=== PATIENT | male | born 1960 | race African-American/Black ===

== ENCOUNTER 2017-10-28 12:47 | Inpatient (IN) | payer OTHER ==
[2017-10-28 14:49] VITALS: BMI 27.4
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
[2017-10-28] MEDS ORDERED: MAGNESIUM CITRATE 300 ML BOTTLE PO PRN (17:14)
[2017-10-28] MEDS ORDERED: MENTHOL/PHENOL 1 EACH UD MM PRN (17:14)
[2017-10-28] MEDS ORDERED: guaiFENesin/D-METHORPHAN HB 10 ML UNIT-DOSE CUPS PO PRN (17:14)
[2017-10-28] MEDS ORDERED: LOPERAMIDE HCL 2 MG CAPSULE PO PRN (17:14)
[2017-10-28] MEDS ORDERED: MAGNESIUM HYDROX 2400MG/30ML ORAL SUSPENSION 30 ML CUP PO PRN (17:14)
[2017-10-28] MEDS ORDERED: IBUPROFEN 400 MG TABLET (FP) PO PRN (17:14)
[2017-10-28] MEDS ORDERED: hydrOXYzine PAMOATE 50 MG CAPSULE (FP) PO PRN (17:14)
[2017-10-28] MEDS ORDERED: NICOTINE POLACRILEX 2 MG GUM BC PRN (17:14)
[2017-10-28] MEDS ORDERED: ACETAMINOPHEN 325 MG TABLET (FP) PO PRN (17:14)
[2017-10-28] MEDS ORDERED: P-EPHED 60MG/TRIPROLIDI 2.5MG TABLET PO PRN (17:14)
[2017-10-28] MEDS: NICOTINE 14 MG/24 HOURS TOPICAL PATCH TD SCH (18:40)
[2017-10-28] MEDS ORDERED: cloNIDine HCL 0.1 MG TABLET PO ONE (18:45)
[2017-10-28] MEDS: ALBUTEROL SO4 18 GM HFA INHALER IH PRN (19:11)
[2017-10-28] MEDS: MAG HYDROX/AL HYDROX/SIMETH 30 ML UNIT-DOSE CUP PO PRN (20:02)
[2017-10-28] MEDS: THIAMINE HCL 100 MG TABLET (FP) PO SCH (21:16)
[2017-10-28] MEDS: BACITRACIN 0.9 GM PACKET TP SCH (21:16)
[2017-10-28] MEDS: BUDESONIDE/FORMETEROL FUMARATE 80/4.5 mcg INHALER IH SCH (21:16)
[2017-10-29 06:21] LABS: URINE APPEARANCE CLEAR; URINE BILIRUBIN NEGATIVE (<2.0 mg/dL); URINE COLOR YELLOW; URINE GLUCOSE (UA) NEGATIVE (NEGATIVE); URINE KETONE NEGATIVE (NEGATIVE); URINE LEUK ESTERASE NEGATIVE (NEGATIVE); URINE NITRITE NEGATIVE (NEGATIVE); URINE PROTEIN NEGATIVE (NEGATIVE); URINE UROBILINOGEN NEGATIVE mg/dL (0.2-1.0)
[2017-10-29] MEDS ORDERED: PT OWN MED DRAWER 7, Y5N ONE (06:39)
[2017-10-29] MEDS: ALBUTEROL SO4 18 GM HFA INHALER IH PRN ×2 (06:40→19:13)
[2017-10-29] MEDS: NAPROXEN 500 MG TABLET (FP) PO PRN (06:40)
[2017-10-29] MEDS: BACITRACIN 0.9 GM PACKET TP SCH ×2 (09:44→21:17)
[2017-10-29] MEDS: BUDESONIDE/FORMETEROL FUMARATE 80/4.5 mcg INHALER IH SCH ×2 (09:44→21:17)
[2017-10-29] MEDS: PRENATAL VITAMINS W/ FOLIC ACID TABLET (FP) PO SCH (09:45)
[2017-10-29] MEDS: NICOTINE 14 MG/24 HOURS TOPICAL PATCH TD SCH (09:45)
[2017-10-29 10:08] LABS: HEMATOCRIT 38.1 % (35.4-49); HEMOGLOBIN 12.8 GM/dL (11.7-16.9); MCH 31.6 pg (25.7-33.7); MCHC 33.6 g/dl (32.0-35.9); MEAN PLT VOLUME 8.3 fl (7.5-11.1); PLATELET COUNT 235 K/MM3 (134-434); RBC 4.05 M/mm3 (4.00-5.60); RDW 12.8 % (11.9-15.9); WHITE BLOOD COUNT 7.1 K/mm3 (4.0-10.0)
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
--- NOTE | 2017-10-29 11:31 | EKG ---
Test Reason : Blood Pressure : / mmHG Vent. Rate : 092 BPM Atrial Rate : 092 BPM P-R Int : 132 ms QRS Dur : 082 ms QT Int : 342 ms P-R-T Axes : 073 011 070 degrees QTc Int : 422 ms NORMAL SINUS RHYTHM NORMAL ECG NO PREVIOUS ECGS AVAILABLE Confirmed by ANNA WILSON, PHUONG ([id number]) on 10/29/2017 11:30:46 AM Referred By: Confirmed By:PHUONG CASTILLO MD
[2017-10-29] MEDS ORDERED: PNEUMOC 13-VAL CONJ-DIP CRM/PF 0.5 ML DISP.SYRIN IM ONE (12:00)
[2017-10-29] MEDS ORDERED: PNEUMOCOCCAL 23 VACCINE 0.5 ML VIAL IM ONE (12:00)
[2017-10-29] MEDS ORDERED: FLU VACCINE QUAD 60 MCG/0.5 ML (MDV 17-18) IM ONE (12:00)
[2017-10-29] MEDS: MAG HYDROX/AL HYDROX/SIMETH 30 ML UNIT-DOSE CUP PO PRN ×2 (15:28→21:18)
[2017-10-29 15:33] LABS: ALBUMIN 3.3 g/dl (3.4-5.0); ANION GAP 7 (8-16); BLOOD UREA NITROGEN 15 mg/dL (7-18); CHLORIDE 104 mmol/L (98-107); CO2 30 mmol/L (21-32); GLUCOSE,RANDOM 135 mg/dL (74-106); POTASSIUM 4.7 mmol/L (3.5-5.1); SODIUM 141 mmol/L (136-145)
[2017-10-29 15:36] LABS: ALK PHOS 55 U/L (45-117); BILIRUBIN,TOTAL 0.3 mg/dL (0.2-1.0); SGOT/AST 22 U/L (15-37); SGPT/ALT 23 U/L (12-78); TOT PROT 6.5 g/dl (6.4-8.2)
[2017-10-29] MEDS: THIAMINE HCL 100 MG TABLET (FP) PO SCH (21:17)
[2017-10-30] MEDS: ALBUTEROL SO4 18 GM HFA INHALER IH PRN ×2 (06:28→17:50)
[2017-10-30] MEDS: BACITRACIN 0.9 GM PACKET TP SCH ×2 (09:51→21:33)
[2017-10-30] MEDS: PRENATAL VITAMINS W/ FOLIC ACID TABLET (FP) PO SCH (09:51)
[2017-10-30] MEDS: BUDESONIDE/FORMETEROL FUMARATE 80/4.5 mcg INHALER IH SCH ×2 (09:51→21:33)
[2017-10-30] MEDS: NICOTINE 14 MG/24 HOURS TOPICAL PATCH TD SCH (09:51)
[2017-10-30] MEDS: PANTOPRAZOLE 40 MG TABLET (FP) PO SCH (17:48)
[2017-10-30] MEDS: THIAMINE HCL 100 MG TABLET (FP) PO SCH (21:33)
[2017-10-30] MEDS: MELATONIN 5 MG TABLETS PO PRN (21:34)
[2017-10-31] MEDS: ALBUTEROL SO4 18 GM HFA INHALER IH PRN ×2 (06:02→17:14)
[2017-10-31] MEDS: BUDESONIDE/FORMETEROL FUMARATE 80/4.5 mcg INHALER IH SCH ×2 (09:51→21:28)
[2017-10-31] MEDS: BACITRACIN 0.9 GM PACKET TP SCH ×2 (09:51→21:28)
[2017-10-31] MEDS: NAPROXEN 500 MG TABLET (FP) PO PRN (09:52)
[2017-10-31] MEDS: NICOTINE 14 MG/24 HOURS TOPICAL PATCH TD SCH (09:52)
[2017-10-31] MEDS: PANTOPRAZOLE 40 MG TABLET (FP) PO SCH (09:52)
[2017-10-31] MEDS: PRENATAL VITAMINS W/ FOLIC ACID TABLET (FP) PO SCH (09:52)
[2017-10-31] MEDS: THIAMINE HCL 100 MG TABLET (FP) PO SCH (21:27)
[2017-11-01] MEDS: ALBUTEROL SO4 18 GM HFA INHALER IH PRN ×2 (06:05→15:10)
[2017-11-01] MEDS: NICOTINE 14 MG/24 HOURS TOPICAL PATCH TD SCH (09:57)
[2017-11-01] MEDS: BACITRACIN 0.9 GM PACKET TP SCH ×2 (09:57→21:36)
[2017-11-01] MEDS: PRENATAL VITAMINS W/ FOLIC ACID TABLET (FP) PO SCH (09:57)
[2017-11-01] MEDS: PANTOPRAZOLE 40 MG TABLET (FP) PO SCH (09:57)
[2017-11-01] MEDS: BUDESONIDE/FORMETEROL FUMARATE 80/4.5 mcg INHALER IH SCH ×2 (09:58→21:36)
[2017-11-01] MEDS: NAPROXEN 500 MG TABLET (FP) PO PRN ×2 (09:59→21:36)
[2017-11-01] MEDS: THIAMINE HCL 100 MG TABLET (FP) PO SCH (21:36)
[2017-11-01] MEDS: MELATONIN 5 MG TABLETS PO PRN (21:36)
[2017-11-02] MEDS: ALBUTEROL SO4 18 GM HFA INHALER IH PRN ×2 (06:29→17:02)
[2017-11-02] MEDS: PRENATAL VITAMINS W/ FOLIC ACID TABLET (FP) PO SCH (09:48)
[2017-11-02] MEDS: NICOTINE 14 MG/24 HOURS TOPICAL PATCH TD SCH (09:48)
[2017-11-02] MEDS: BACITRACIN 0.9 GM PACKET TP SCH ×2 (09:48→21:14)
[2017-11-02] MEDS: BUDESONIDE/FORMETEROL FUMARATE 80/4.5 mcg INHALER IH SCH ×2 (09:49→21:14)
[2017-11-02] MEDS: PANTOPRAZOLE 40 MG TABLET (FP) PO SCH (09:49)
[2017-11-02] MEDS: NAPROXEN 500 MG TABLET (FP) PO PRN (21:14)
[2017-11-02] MEDS: THIAMINE HCL 100 MG TABLET (FP) PO SCH (21:14)
[2017-11-02] MEDS: MELATONIN 5 MG TABLETS PO PRN (21:14)
[2017-11-03] MEDS: ALBUTEROL SO4 18 GM HFA INHALER IH PRN ×2 (06:13→17:01)
[2017-11-03] MEDS: NICOTINE 14 MG/24 HOURS TOPICAL PATCH TD SCH (09:55)
[2017-11-03] MEDS: PANTOPRAZOLE 40 MG TABLET (FP) PO SCH (09:55)
[2017-11-03] MEDS: BACITRACIN 0.9 GM PACKET TP SCH ×2 (09:55→21:23)
[2017-11-03] MEDS: PRENATAL VITAMINS W/ FOLIC ACID TABLET (FP) PO SCH (09:55)
[2017-11-03] MEDS: BUDESONIDE/FORMETEROL FUMARATE 80/4.5 mcg INHALER IH SCH ×2 (09:55→21:21)
[2017-11-03] MEDS: MELATONIN 5 MG TABLETS PO PRN (21:21)
[2017-11-03] MEDS: THIAMINE HCL 100 MG TABLET (FP) PO SCH (21:21)
[2017-11-03] MEDS: NAPROXEN 500 MG TABLET (FP) PO PRN (21:22)
[2017-11-04] MEDS: BACITRACIN 0.9 GM PACKET TP SCH ×2 (09:53→21:20)
[2017-11-04] MEDS: BUDESONIDE/FORMETEROL FUMARATE 80/4.5 mcg INHALER IH SCH ×2 (09:53→21:20)
[2017-11-04] MEDS: PRENATAL VITAMINS W/ FOLIC ACID TABLET (FP) PO SCH (09:53)
[2017-11-04] MEDS: PANTOPRAZOLE 40 MG TABLET (FP) PO SCH (09:53)
[2017-11-04] MEDS: NICOTINE 14 MG/24 HOURS TOPICAL PATCH TD SCH (09:54)
[2017-11-04] MEDS: ALBUTEROL SO4 18 GM HFA INHALER IH PRN (17:00)
[2017-11-04] MEDS: NAPROXEN 500 MG TABLET (FP) PO PRN (21:20)
[2017-11-04] MEDS: THIAMINE HCL 100 MG TABLET (FP) PO SCH (21:20)
[2017-11-04] MEDS: MELATONIN 5 MG TABLETS PO PRN (21:20)
[2017-11-05] MEDS: ALBUTEROL SO4 18 GM HFA INHALER IH PRN ×3 (06:17→18:04)
[2017-11-05] MEDS: PANTOPRAZOLE 40 MG TABLET (FP) PO SCH (09:36)
[2017-11-05] MEDS: BACITRACIN 0.9 GM PACKET TP SCH ×2 (09:36→21:24)
[2017-11-05] MEDS: PRENATAL VITAMINS W/ FOLIC ACID TABLET (FP) PO SCH (09:36)
[2017-11-05] MEDS: NICOTINE 14 MG/24 HOURS TOPICAL PATCH TD SCH (09:36)
[2017-11-05] MEDS: BUDESONIDE/FORMETEROL FUMARATE 80/4.5 mcg INHALER IH SCH ×2 (09:36→21:23)
[2017-11-05] MEDS ORDERED: PT OWN MED DRAWER 7, Y5N ONE (20:26)
[2017-11-05] MEDS: THIAMINE HCL 100 MG TABLET (FP) PO SCH (21:23)
[2017-11-05] MEDS: MELATONIN 5 MG TABLETS PO PRN (21:25)
[2017-11-05] MEDS: NAPROXEN 500 MG TABLET (FP) PO PRN (21:26)
[2017-11-06] MEDS: ALBUTEROL SO4 18 GM HFA INHALER IH PRN ×3 (06:26→18:47)
[2017-11-06] MEDS: PRENATAL VITAMINS W/ FOLIC ACID TABLET (FP) PO SCH (09:52)
[2017-11-06] MEDS: BACITRACIN 0.9 GM PACKET TP SCH ×2 (09:52→21:36)
[2017-11-06] MEDS: PANTOPRAZOLE 40 MG TABLET (FP) PO SCH (09:52)
[2017-11-06] MEDS: BUDESONIDE/FORMETEROL FUMARATE 80/4.5 mcg INHALER IH SCH ×2 (09:52→21:37)
[2017-11-06] MEDS: NICOTINE 14 MG/24 HOURS TOPICAL PATCH TD SCH (09:53)
[2017-11-06] MEDS: MELATONIN 5 MG TABLETS PO PRN (21:36)
[2017-11-06] MEDS: NAPROXEN 500 MG TABLET (FP) PO PRN (21:36)
[2017-11-06] MEDS: THIAMINE HCL 100 MG TABLET (FP) PO SCH (21:37)
[2017-11-07] MEDS: ALBUTEROL SO4 18 GM HFA INHALER IH PRN ×2 (06:09→18:38)
[2017-11-07] MEDS: PANTOPRAZOLE 40 MG TABLET (FP) PO SCH (09:46)
[2017-11-07] MEDS: PRENATAL VITAMINS W/ FOLIC ACID TABLET (FP) PO SCH (09:46)
[2017-11-07] MEDS: BACITRACIN 0.9 GM PACKET TP SCH ×2 (09:46→21:15)
[2017-11-07] MEDS: BUDESONIDE/FORMETEROL FUMARATE 80/4.5 mcg INHALER IH SCH ×2 (09:46→21:15)
[2017-11-07] MEDS: NICOTINE 14 MG/24 HOURS TOPICAL PATCH TD SCH (09:47)
[2017-11-07] MEDS: MELATONIN 5 MG TABLETS PO PRN (21:15)
[2017-11-07] MEDS: THIAMINE HCL 100 MG TABLET (FP) PO SCH (21:15)
[2017-11-07] MEDS: NAPROXEN 500 MG TABLET (FP) PO PRN (21:15)
[2017-11-08] MEDS: ALBUTEROL SO4 18 GM HFA INHALER IH PRN ×3 (06:08→19:32)
[2017-11-08] MEDS: PRENATAL VITAMINS W/ FOLIC ACID TABLET (FP) PO SCH (09:49)
[2017-11-08] MEDS: PANTOPRAZOLE 40 MG TABLET (FP) PO SCH (09:49)
[2017-11-08] MEDS: BACITRACIN 0.9 GM PACKET TP SCH ×3 (09:49→21:21)
[2017-11-08] MEDS: BUDESONIDE/FORMETEROL FUMARATE 80/4.5 mcg INHALER IH SCH ×2 (09:49→21:20)
[2017-11-08] MEDS: NICOTINE 14 MG/24 HOURS TOPICAL PATCH TD SCH (09:49)
[2017-11-08] MEDS: MELATONIN 5 MG TABLETS PO PRN (21:20)
[2017-11-08] MEDS: THIAMINE HCL 100 MG TABLET (FP) PO SCH (21:20)
[2017-11-08] MEDS: NAPROXEN 500 MG TABLET (FP) PO PRN (21:21)
[2017-11-09] MEDS: ALBUTEROL SO4 18 GM HFA INHALER IH PRN ×2 (05:55→17:04)
[2017-11-09] MEDS: BACITRACIN 0.9 GM PACKET TP SCH ×2 (10:03→21:22)
[2017-11-09] MEDS: PRENATAL VITAMINS W/ FOLIC ACID TABLET (FP) PO SCH (10:03)
[2017-11-09] MEDS: PANTOPRAZOLE 40 MG TABLET (FP) PO SCH (10:03)
[2017-11-09] MEDS: BUDESONIDE/FORMETEROL FUMARATE 80/4.5 mcg INHALER IH SCH ×2 (10:04→21:21)
[2017-11-09] MEDS: NICOTINE 14 MG/24 HOURS TOPICAL PATCH TD SCH (10:05)
[2017-11-09] MEDS: NAPROXEN 500 MG TABLET (FP) PO PRN (14:56)
[2017-11-09] MEDS: THIAMINE HCL 100 MG TABLET (FP) PO SCH (21:21)
[2017-11-10] MEDS: PANTOPRAZOLE 40 MG TABLET (FP) PO SCH (09:54)
[2017-11-10] MEDS: PRENATAL VITAMINS W/ FOLIC ACID TABLET (FP) PO SCH (09:54)
[2017-11-10] MEDS: BUDESONIDE/FORMETEROL FUMARATE 80/4.5 mcg INHALER IH SCH ×2 (09:55→21:25)
[2017-11-10] MEDS: NAPROXEN 500 MG TABLET (FP) PO PRN (09:56)
[2017-11-10] MEDS: BACITRACIN 0.9 GM PACKET TP SCH (10:37)
[2017-11-10] MEDS: NICOTINE 14 MG/24 HOURS TOPICAL PATCH TD SCH (10:37)
[2017-11-10] MEDS: ALBUTEROL SO4 18 GM HFA INHALER IH PRN (14:11)
[2017-11-10] MEDS: MELATONIN 5 MG TABLETS PO PRN (21:25)
[2017-11-10] MEDS: THIAMINE HCL 100 MG TABLET (FP) PO SCH (21:25)
[2017-11-11] MEDS: ALBUTEROL SO4 18 GM HFA INHALER IH PRN ×3 (06:09→18:00)
[2017-11-11] MEDS: PANTOPRAZOLE 40 MG TABLET (FP) PO SCH (09:56)
[2017-11-11] MEDS: BUDESONIDE/FORMETEROL FUMARATE 80/4.5 mcg INHALER IH SCH ×2 (09:56→21:13)
[2017-11-11] MEDS: PRENATAL VITAMINS W/ FOLIC ACID TABLET (FP) PO SCH (09:56)
[2017-11-11] MEDS: NICOTINE 14 MG/24 HOURS TOPICAL PATCH TD SCH (09:57)
[2017-11-11] MEDS: THIAMINE HCL 100 MG TABLET (FP) PO SCH (21:14)
[2017-11-11] MEDS: MELATONIN 5 MG TABLETS PO PRN (21:14)
[2017-11-11] MEDS: NAPROXEN 500 MG TABLET (FP) PO PRN (21:15)
[2017-11-12] MEDS: ALBUTEROL SO4 18 GM HFA INHALER IH PRN (05:56)
[2017-11-12 06:37] VITALS: BP 129/92; PULSE 78; TEMP 97.2
--- NOTE | 2017-11-12 09:23 | PN ---
Psychiatric Progress Note Vital Signs: Vital Signs Period Temp Pulse Resp BP Sys/Durán Pulse Ox Last 24 Hr 97.2 F 78 1-18 129/92 Date of Session: 11/12/17 Chief Complaint:: discharge visit HPI: Patient has addressed alcohol, cocaine and nicotine dependence. ROS: Asthma, gout, HTN, COPD, hypercholesterolemia, GERD, bilateral inguinal hernia sx in 1972, stye removal from both eyes, Current Medications: Active Medications Generic Name Dose Route Start Last Admin Trade Name Freq PRN Reason Stop Dose Admin Acetaminophen 650 mg 10/28/17 17:14 Tylenol - PO Q4H PRN FEVER Al Hydroxide/Mg Hydroxide 30 ml 10/28/17 17:14 10/29/17 21:18 Mylanta Oral Suspension - PO 30 ml Q6H PRN Administration DYSPEPSIA Albuterol Sulfate 2 puff 10/28/17 17:15 11/12/17 05:56 Ventolin Hfa Inhaler - IH 2 puff Q4H PRN Administration ASTHMA Budesonide/Formoterol Fumarate 1 puff 10/28/17 22:00 11/11/17 21:13 Symbicort 80/4.5mcg - IH 1 puff BID PHEOBE Administration Eucalyptus/Menthol/Phenol/Sorbitol 1 each 10/28/17 17:14 Cepastat Lozenge - MM Q4H PRN SORE THROAT Guaifenesin 10 ml 10/28/17 17:14 Robitussin Dm - PO Q6H PRN COUGH Hydroxyzine Pamoate 50 mg 10/28/17 17:14 Vistaril - PO Q4H PRN AGITATION Loperamide HCl 4 mg 10/28/17 17:14 Imodium - PO Q6H PRN DIARRHEA Magnesium Citrate 300 ml 10/28/17 17:14 Citroma - PO Q48H PRN CONSTIPATION Magnesium Hydroxide 30 ml 10/28/17 17:14 Milk Of Magnesia - PO DAILY PRN CONSTIPATION Melatonin 5 mg 10/28/17 22:00 11/11/17 21:14 Melatonin PO 5 mg HS PRN Administration INSOMNIA Naproxen 500 mg 10/28/17 17:15 11/11/17 21:15 Naprosyn - PO 500 mg BID PRN Administration PAIN LEVEL 4 - 6 Nicotine 14 mg 10/28/17 17:45 11/11/17 09:57 Nicoderm Patch - TD Not Given DAILY PHOEBE Nicotine Polacrilex 2 mg 10/28/17 17:14 Nicorette Gum - BC Q2H PRN NICOTINE REPLACEMENT RX Pantoprazole Sodium 40 mg 10/30/17 16:30 11/11/17 09:56 Protonix - PO 40 mg DAILY PHOEBE Administration Multivit/Folic Acid/Iron 1 tab 10/29/17 10:00 11/11/17 09:56 Vitamins (Sjr) - PO 1 tab DAILY PHOEBE Administration Pseudoephedrine/Triprolidine 1 combo 10/28/17 17:14 Actifed - PO TID PRN NASAL CONGESTION Thiamine HCl 100 mg 10/28/17 22:00 11/11/17 21:14 Vitamin B1 - PO 100 mg HS PHOEBE Administration Current Side Effect: No Lab tests ordered: No Lab tests reviewed: Yes Provider note:: Patient has completed treatment today and met his identified goals, will continue to address his issues at [facility]. Patient verbalized his resolution to continue maintain abstinence and stay away from "people, places and things". Patient was encouraged utilize all supports available to prevent relapse. He is stable for discharge today. Total face to face time:: 15 Mental Status Exam - Mental Status Exam Alert and Oriented to: Time, Place, Person Cognitive Function: Good Patient Appearance: Well Groomed Mood: Hopeful Affect: Appropriate, Mood Congruent Patient Behavior: Appropriate, Cooperative Speech Pattern: Clear, Appropriate Voice Loudness: Normal Thought Process: Intact, Goal Oriented Thought Disorder: Not Present Hallucinations: Denies Suicidal Ideation: Denies Homicidal Ideation: Denies Insight/Judgement: Fair Sleep: Fair Appetite: Fair Muscle strength/Tone: Normal Gait/Station: Normal Psychiatric Treatment Plan - Problem List (1) Alcohol dependence Current Visit: Yes (2) Cocaine dependence Current Visit: Yes (3) Nicotine dependence Current Visit: Yes
[2017-11-12] MEDS: NICOTINE 14 MG/24 HOURS TOPICAL PATCH TD SCH (10:08)
[2017-11-12] MEDS: PANTOPRAZOLE 40 MG TABLET (FP) PO SCH (10:08)
[2017-11-12] MEDS: PRENATAL VITAMINS W/ FOLIC ACID TABLET (FP) PO SCH (10:08)
[2017-11-12] MEDS: BUDESONIDE/FORMETEROL FUMARATE 80/4.5 mcg INHALER IH SCH (10:09)
== END 2017-11-12 10:45 | disposition home or self-care (01) | DRG 772 ==
LOC: YASAS 12:47 → Y5N 16:01
PROVIDERS: ADMIT Psychiatry & Neurology Psychiatry; ATTEND Psychiatry & Neurology Psychiatry
PROC: HZ42ZZZ Group Counseling for Substance Abuse Treatment, Cognitive-Behavioral (ICD-10-PCS; principal; 2017-10-28)
DX: F10.20 Alcohol dependence, uncomplicated (principal); F14.20 Cocaine dependence, uncomplicated; F17.210 Nicotine dependence, cigarettes, uncomplicated; I10 Essential (primary) hypertension; J45.20 Mild intermittent asthma, uncomplicated; J44.9 Chronic obstructive pulmonary disease, unspecified; M10.9 Gout, unspecified; E78.00 Pure hypercholesterolemia, unspecified; K21.9 Gastro-esophageal reflux disease without esophagitis; Z88.5 Allergy status to narcotic agent
CPT/HCPCS: 36415; 71046-TC-FY; 80053; 81003; 82962; 85027; 86593; 87389; 90688; 90732; 93005; 93010; G0008; G0009

== ENCOUNTER 2019-05-26 13:59 | Inpatient (IN) | payer OTHER ==
[2019-05-26 14:46] VITALS: BMI 30.5
--- NOTE | 2019-05-26 16:47 | HP ---
CIWA Score Nausea/Vomitin-No Nausea/No Vomiting Muscle Tremors: 4-Moderate,w/Arms Extend Anxiety: 4-Mod. Anxious/Guarded Agitation: 4-Moderately Restless Paroxysmal Sweats: 3 Orientation: 1-Uncertain about Date Tacttile Disturbances: 0-None Auditory Disturbances: 3-Moderate Harsh/Frighten (sensitivity to loud noise) Visual Disturbances: 0-None Headache: 0-None Present CIWA-Ar Total Score: 19 - Admission Criteria [facility]ASAS Guidelines: Admission for Medically Managed Detox: Requires at least one of the followin. CIWA greater than 12 2. Seizures within the past 24 hours 3. Delirium tremens within the past 24 hours 4. Hallucinations within the past 24 hours 5. Acute intervention needed for co occurring medical disorder 6. Acute intervention needed for co occurring psychiatric disorder 7. Severe withdrawal that cannot be handled at a lower level of care (continued vomiting, continued diarrhea, abnormal vital signs) requiring intravenous medication and/or fluids 8. Admitting History and Physical - Smoking History Smoking history: Current every day smoker Have you smoked in the past 12 months: Yes Aproximately how many cigarettes per day: 4 - Alcohol/Substance Use Hx Alcohol Use: Yes (BEER) Admission [facility] Chief Complaint: c/o withdrawal sx's. seeking alcohol detox Allergies/Adverse Reactions: Allergies Allergy/AdvReac Type Severity Reaction Status Date / Time codeine AdvReac Severe Nausea Verified 05/26/19 14:38 History of Present Illness: 58 Y.O. MALE WITH ALCOHOLISM HERE FOR DETOX. CLIENT IS SLEF REFERRED. KNOWN TO PROGRAM. LAST HERE 1 YEAR AGO. REPORTS ALCOHOL INTAKE DAILY, "ALL DAY" LONG. STATES HIS ADDICTION STARTED AT AGE 13. LAST ALCOHOL DRINK WAS 9 AM THIS MORNING APPROX 16 OZ. NOW HERE WITH C/O WITHDRAWAL SX'S. 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 HE ALSO REPORTS COCAINE ABUSE. DENIES ANY CLEAN TIME IN THE PAST YEAR. DENIES HX/O BLACK OUTS, SEIZURE, SI, AVH. 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 Exam Limitations: No Limitations - Ebola screening Have you traveled outside of the country in the last 21 days: No Have you had contact with anyone from an Ebola affected area: No Do you have a fever: No - Review of Systems Constitutional: Chills, Malaise (CHRONIC), Changes in sleep EENT: reports: Blurred Vision (EYEGLASSES), Dental Problems (MISSING TEETH) Respiratory: reports: No Symptoms reported Cardiac: reports: No Symptoms Reported GI: reports: Poor Fluid Intake : reports: No Symptoms Reported Musculoskeletal: reports: Joint Pain (AO/ GOUT) Integumentary: reports: No Symptoms Reported Neuro: reports: No Symptoms reported Endocrine: reports: No Symptoms Reported Hematology: reports: No Symptoms Reported Psychiatric: reports: Orientated x3, Agitated (IRRITBALE), Anxious, Depressed ( DENIES SI) Other Systems: Reviewed and Negative Patient History - Patient Medical History Hx Anemia: No Hx Asthma: Yes (USES ALBUTEROL/SYMBICORT) Hx Chronic Obstructive Pulmonary Disease (COPD): Yes (MDI) Hx Cardiac Disorders: No Hx Hypertension: Yes (NON COMPLIANT) Hx Hypercholesterolemia: Yes HX Cerebrovascular Accident: No Hx Seizures: No Hx Diabetes: No Hx Gastrointestinal Disorders: Yes (GERD/ DIVERTICULITIS) Hx Genitourinary Disorders: No Hx Sexually Transmitted Disorders: No Hx Renal Disease (ESRD): No Hx Thyroid Disease: No Hx Human Immunodeficiency Virus (HIV): No Hx Hepatitis C: No Hx Depression: No Hx Suicide Attempt: No (DENIES ) Hx Bipolar Disorder: No Hx Schizophrenia: No Other Medical History: DENIES - Patient Surgical History Past Surgical History: Yes Hx Neurologic Surgery: No Hx Cataract Extraction: No Hx Cardiac Surgery: No Hx Lung Surgery: No Hx Breast Surgery: No Hx Breast Biopsy: No Hx Abdominal Surgery: Yes (BILATERAL INGUINAL HERNIA SURGERY IN 1972) Hx Appendectomy: No Hx Cholecystectomy: No Hx Genitourinary Surgery: No Hx Section: No Hx Orthopedic Surgery: No Other Surgical History: STYE REMOVED ON BOTH EYES Anesthesia Reaction: No - PPD History Previous Implant?: Yes Documented Results: Positive w/o proof Implanted On Prior [facility] Admission?: No Results: CXR 2018 PPD to be Administered?: No - Smoking Cessation Smoking history: Current every day smoker Have you smoked in the past 12 months: Yes Aproximately how many cigarettes per day: 2 Hx Chewing Tobacco Use: No Initiated information on smoking cessation: Yes 'Breaking Loose' booklet given: 05/26/19 - Substance & Tx. History Hx Alcohol Use: Yes Hx Substance Use: Yes Substance Use Type: Alcohol, Cocaine Hx Substance Use Treatment: Yes ([facility]) - Substances abused Alcohol Substance route: Oral Frequency: Daily Amount used: 6-10 cans of beer-16OZ Age of first use: 13 Date of last use: 05/26/19 Crack Substance route: Smoking Frequency: 3-6 times per week Amount used: 4 bags Age of first use: 21 Date of last use: 05/26/19 Admission Physical Exam [facility] - Vital Signs Vital Signs: Vital Signs - 24 hr 05/26/19 14:37 Temperature 97.1 F L Pulse Rate 91 H Respiratory 18 Rate Blood Pressure 145/97 - Physical General Appearance: Yes: Mild Distress, Moderate Distress, Alcohol on Breath, Tremorous, Anxious, Other (MALODUROUS) HEENTM: Yes: EOMI, Normocephalic, Normal Voice, NGUYỄN, Pharynx Normal, Other ( POOR DENTITION LAZY LEFT EYE) Respiratory: Yes: Wheezing Neck: Yes: No masses,lesions,Nodules, Supple, Trachea in good position Breast: Yes: Breasts Symetrical Cardiology: Yes: Regular Rhythm, Regular Rate, S1, S2 Abdominal: Yes: Normal Bowel Sounds, Non Tender, Soft, Protuberent Genitourinary: Yes: Within Normal Limits (NO C/O OFFERED) Back: Yes: Normal Inspection Musculoskeletal: Yes: full range of Motion, Joint Stiffness (R KNEE) Extremities: Yes: Normal Capillary Refill, Normal Range of Motion, Non-Tender, Tremors Neurological: Yes: Fully Oriented, Alert, Motor Strength 5/5, Depressed Affect Integumentary: Yes: Dry, Warm Lymphatic: Yes: Within Normal Limits - Diagnostic (1) HTN (hypertension) Current Visit: Yes Status: Chronic Qualifiers: Hypertension type: essential hypertension Qualified Code(s): I10 - Essential (primary) hypertension (2) HLD (hyperlipidemia) Current Visit: Yes Status: Chronic (3) Gout Current Visit: Yes Status: Chronic (4) Osteoarthritis Current Visit: Yes Status: Chronic (5) Depressed mood Current Visit: Yes Status: Acute (6) Alcohol dependence with uncomplicated withdrawal Current Visit: Yes Status: Acute (7) Asthma Current Visit: Yes Status: Acute Qualifiers: Asthma severity: mild Asthma persistence: intermittent Asthma complication type: uncomplicated Qualified Code(s): J45.20 - Mild intermittent asthma, uncomplicated (8) Cocaine dependence Current Visit: Yes Status: Acute (9) Nicotine dependence Current Visit: Yes Status: Chronic Qualifiers: Nicotine product type: cigarettes Substance use status: uncomplicated Qualified Code(s): F17.210 - Nicotine dependence, cigarettes, uncomplicated (10) COPD (chronic obstructive pulmonary disease) Current Visit: Yes Status: Chronic Qualifiers: Emphysema type: unspecified (11) GERD (gastroesophageal reflux disease) Current Visit: No Status: Chronic Qualifiers: Esophagitis presence: esophagitis presence not specified Qualified Code(s) : K21.9 - Gastro-esophageal reflux disease without esophagitis (12) Homeless Current Visit: Yes Status: Suspected (13) Non compliance w medication regimen Current Visit: Yes Status: Chronic (14) Diverticulosis Current Visit: Yes Status: Chronic (15) Skin turgor poor Current Visit: Yes Status: Acute (16) Dry skin dermatitis Current Visit: Yes Status: Acute (17) Amblyopia of left eye Current Visit: Yes Status: Chronic Cleared for Admission [facility] - Detox or Rehab S Level of Care: Medically Managed Detox Regimen/Protocol: Librium Claeared for Rehab Admission: No Breathalyzer - Breathalyzer Breathalyzer: 0 Urine Drug Screen - Test Device Lot number: [id number] Expiration date: 02/03/21 - Control Is test valid?: Yes - Results Drug screen NEGATIVE: No Urine drug screen results: YANCI-Cocaine Inpatient Rehab Admission - Rehab Decision to Admit Inpatient rehab admission?: No
[2019-05-26] MEDS ORDERED: P-EPHED 60MG/TRIPROLIDI 2.5MG TABLET PO PRN (16:53)
[2019-05-26] MEDS ORDERED: guaiFENesin 200 MG/10 ML 10 ML UNIT-DOSE CUPS PO PRN (16:53)
[2019-05-26] MEDS ORDERED: DICYCLOMINE HCL 10 MG CAPSULE PO PRN (16:53)
[2019-05-26] MEDS ORDERED: MAG HYDROX/AL HYDROX/SIMETH 30 ML UNIT-DOSE CUP PO PRN (16:53)
[2019-05-26] MEDS ORDERED: chlordiazePOXIDE HCL 10 MG CAPSULE PO PRN (16:53)
[2019-05-26] MEDS ORDERED: ONDANSETRON *ODT* 4 MG TABLET SL PRN (16:53)
[2019-05-26] MEDS ORDERED: MAGNESIUM HYDROX 2400MG/30ML ORAL SUSPENSION 30 ML CUP PO PRN (16:53)
[2019-05-26] MEDS ORDERED: BISMUTH SUBSALICYLATE 524 MG/30 ML UD PO PRN (16:53)
[2019-05-26] MEDS ORDERED: NICOTINE POLACRILEX 2 MG GUM BUC PRN (16:53)
[2019-05-26] MEDS ORDERED: ACETAMINOPHEN 325 MG TABLET (FP) PO PRN (16:53)
[2019-05-26] MEDS ORDERED: MAGNESIUM CITRATE 300 ML BOTTLE PO PRN (16:53)
[2019-05-26] MEDS ORDERED: MENTHOL/PHENOL 1 EACH UD MM PRN (16:53)
[2019-05-26] MEDS: amLODIPine BESYLATE 5 MG TABLET (FP) PO SCH (18:25)
[2019-05-26] MEDS: BUDESONIDE/FORMETEROL FUMARATE 80/4.5 mcg INHALER IH SCH (22:10)
[2019-05-26] MEDS: THIAMINE HCL 100 MG TABLET (FP) PO SCH (22:11)
[2019-05-26] MEDS: ALBUTEROL SO4 8 GM HFA INHALER IH PRN (22:11)
[2019-05-26] MEDS: chlordiazePOXIDE HCL 25 MG CAPSULE PO SCH (22:12)
[2019-05-27] MEDS: chlordiazePOXIDE HCL 25 MG CAPSULE PO SCH ×3 (05:27→22:12)
[2019-05-27] MEDS: METHOCARBAMOL 500 MG TABLET PO PRN ×2 (07:16→17:30)
[2019-05-27] MEDS: IBUPROFEN 400 MG TABLET (FP) PO PRN ×2 (07:16→17:30)
[2019-05-27 09:36] LABS: HEMATOCRIT 38.3 % (35.4-49); HEMOGLOBIN 12.9 GM/dL (11.7-16.9); MCH 30.7 pg (25.7-33.7); MCHC 33.6 g/dl (32.0-35.9); MEAN CELL VOLUME 91.3 fl (80-96); MEAN PLT VOLUME 8.5 fl (7.5-11.1); PLATELET COUNT 370 K/MM3 (134-434); RDW 13.6 % (11.9-15.9); WHITE BLOOD COUNT 6.9 K/mm3 (4.0-10.0)
[2019-05-27 09:43] LABS: ALBUMIN 3.1 g/dl (3.4-5.0); BILIRUBIN,TOTAL 0.4 mg/dL (0.2-1); CALCIUM 9.3 mg/dL (8.5-10.1); CREATININE 1.1 mg/dL (0.55-1.3); POTASSIUM 4.5 mmol/L (3.5-5.1); TOT PROT 6.6 g/dl (6.4-8.2)
[2019-05-27] MEDS: amLODIPine BESYLATE 5 MG TABLET (FP) PO SCH (10:22)
[2019-05-27] MEDS: NICOTINE 14 MG/24 HOURS TOPICAL PATCH TD SCH (10:22)
[2019-05-27] MEDS: PRENATAL VITAMINS W/ FOLIC ACID TABLET (FP) PO SCH (10:22)
[2019-05-27] MEDS: BUDESONIDE/FORMETEROL FUMARATE 80/4.5 mcg INHALER IH SCH ×2 (10:22→22:11)
[2019-05-27] MEDS: PANTOPRAZOLE 40 MG TABLET (FP) PO SCH (10:22)
[2019-05-27] MEDS: ACETAMINOPHEN 325 MG TABLET (FP) PO PRN ×2 (10:27→22:14)
--- NOTE | 2019-05-27 11:25 | PN ---
[facility] CIWA - CIWA Score Nausea/Vomitin-No Nausea/No Vomiting Muscle Tremors: 3 Anxiety: 3 Agitation: 3 Paroxysmal Sweats: 2 Orientation: 0-Oriented Tacttile Disturbances: 0-None Auditory Disturbances: 0-None Visual Disturbances: 0-None Headache: 0-None Present CIWA-Ar Total Score: 11 [facility] Progress Note (SOAP) Subjective: sweats achy bones due to my gout flare up interrupted sleep Objective: 05/27/19 11:21 Vital Signs Temperature 98.1 F 05/27/19 06:28 Pulse Rate 83 05/27/19 06:28 Respiratory Rate 18 05/27/19 06:28 Blood Pressure 151/101 05/27/19 06:28 O2 Sat by Pulse Oximetry (%) Laboratory Tests 05/27/19 05/27/19 08:00 08:00 WBC 6.9 RBC 4.20 Hgb 12.9 Hct 38.3 MCV 91.3 MCH 30.7 MCHC 33.6 RDW 13.6 Plt Count 370 D MPV 8.5 Sodium 140 Potassium 4.5 Chloride 106 Carbon Dioxide 29 Anion Gap 5 L BUN 16.0 Creatinine 1.1 Est GFR (CKD-EPI)AfAm 85.91 Est GFR (CKD-EPI)NonAf 74.12 Random Glucose 104 Calcium 9.3 Total Bilirubin 0.4 AST 22 ALT 19 Alkaline Phosphatase 74 Total Protein 6.6 Albumin 3.1 L labs noted aaox3 ambulating no acute distress Assessment: 05/27/19 11:25 withdrawal sx Plan: continue detox motrin 800mg tid prn
--- NOTE | 2019-05-27 12:41 | EKG ---
Test Reason : Blood Pressure : / mmHG Vent. Rate : 097 BPM Atrial Rate : 097 BPM P-R Int : 134 ms QRS Dur : 082 ms QT Int : 350 ms P-R-T Axes : 080 -71 075 degrees QTc Int : 444 ms NORMAL SINUS RHYTHM LEFT AXIS DEVIATION ABNORMAL ECG WHEN COMPARED WITH ECG OF 28-OCT-2017 23:01, QRS AXIS SHIFTED LEFT Confirmed by NIKOLE ROBLES MD ([id number]) on 05/27/2019 12:40:45 PM Referred By: Confirmed By:NIKOLE ROBLES MD
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
[2019-05-27] MEDS: THIAMINE HCL 100 MG TABLET (FP) PO SCH (22:12)
[2019-05-27] MEDS: MELATONIN 5 MG TABLETS PO PRN (22:12)
[2019-05-28] MEDS: METHOCARBAMOL 500 MG TABLET PO PRN ×3 (00:49→17:14)
[2019-05-28] MEDS: hydrOXYzine PAMOATE 25 MG CAPSULE (FP) PO PRN ×2 (00:49→17:14)
[2019-05-28] MEDS: ACETAMINOPHEN 325 MG TABLET (FP) PO PRN ×2 (00:50→19:28)
[2019-05-28] MEDS: chlordiazePOXIDE 5 MG CAPSULE PO SCH ×3 (05:58→20:48)
[2019-05-28] MEDS: IBUPROFEN 400 MG TABLET (FP) PO PRN (05:59)
[2019-05-28] MEDS: ALBUTEROL SO4 8 GM HFA INHALER IH PRN (06:01)
[2019-05-28] MEDS: NICOTINE 14 MG/24 HOURS TOPICAL PATCH TD SCH (10:06)
[2019-05-28] MEDS: PANTOPRAZOLE 40 MG TABLET (FP) PO SCH (10:06)
[2019-05-28] MEDS: PRENATAL VITAMINS W/ FOLIC ACID TABLET (FP) PO SCH (10:06)
[2019-05-28] MEDS: amLODIPine BESYLATE 5 MG TABLET (FP) PO SCH (10:06)
[2019-05-28] MEDS: BUDESONIDE/FORMETEROL FUMARATE 80/4.5 mcg INHALER IH SCH ×2 (10:07→22:28)
--- NOTE | 2019-05-28 11:55 | PN ---
S CIWA - CIWA Score Nausea/Vomitin-No Nausea/No Vomiting Muscle Tremors: 3 Anxiety: 2 Agitation: 2 Paroxysmal Sweats: 1-Minimal Palms Moist Orientation: 0-Oriented Tacttile Disturbances: 0-None Auditory Disturbances: 0-None Visual Disturbances: 0-None Headache: 0-None Present CIWA-Ar Total Score: 8 BHS Progress Note (SOAP) Subjective: I need my indomethacin for my gout sweats body aches Objective: 05/28/19 11:53 Vital Signs Temperature 96.4 F L 05/28/19 09:50 Pulse Rate 88 05/28/19 09:50 Respiratory Rate 16 05/28/19 09:50 Blood Pressure 152/104 H 05/28/19 09:50 O2 Sat by Pulse Oximetry (%) Laboratory Tests 05/27/19 05/27/19 05/27/19 08:00 08:00 08:00 WBC 6.9 RBC 4.20 Hgb 12.9 Hct 38.3 MCV 91.3 MCH 30.7 MCHC 33.6 RDW 13.6 Plt Count 370 D MPV 8.5 Sodium 140 Potassium 4.5 Chloride 106 Carbon Dioxide 29 Anion Gap 5 L BUN 16.0 Creatinine 1.1 Est GFR (CKD-EPI)AfAm 85.91 Est GFR (CKD-EPI)NonAf 74.12 Random Glucose 104 Calcium 9.3 Total Bilirubin 0.4 AST 22 ALT 19 Alkaline Phosphatase 74 Total Protein 6.6 Albumin 3.1 L RPR Titer Nonreactive labs noted aaox3 ambulating no acute distress Assessment: 05/28/19 11:54 withdrawal sx Plan: continue detox monitor BP motrin d/c indomethacin ordered as per pt request cane ordered
[2019-05-28] MEDS: INDOMETHACIN 25 MG CAPSULE PO SCH (12:53)
[2019-05-28] MEDS ORDERED: cloNIDine HCL 0.1 MG TABLET PO ONE (20:32)
[2019-05-28] MEDS ORDERED: NAPROXEN 500 MG TABLET (FP) PO PRN (20:38)
--- NOTE | 2019-05-28 20:56 | PN ---
S Progress Note Note: c/o "gout" pain (L) arm wrist area, and (R) foot which started yesterday and became worse this evening. States pain is sharp and "10/10". Swelling (L) wrist w/ tenderness upon light palpation. Fingers warm, mobile. Radial pulses +. Lungs CTA. HR: reg rhythm. HTN Vital Signs 05/28/19 05/28/19 05/28/19 13:43 17:08 18:04 Temperature 96.3 F L 98.1 F 98.1 F Pulse Rate 90 95 H 95 H Respiratory 18 18 18 Rate Blood Pressure 148/101 H 158/121 H 151/98 05/28/19 20:32 Temperature 98.2 F Pulse Rate 105 H Respiratory 18 Rate Blood Pressure 153/110 H Laboratory Last Values WBC 6.9 K/mm3 (4.0-10.0) 05/27/19 08:00 RBC 4.20 M/mm3 (4.00-5.60) 05/27/19 08:00 Hgb 12.9 GM/dL (11.7-16.9) 05/27/19 08:00 Hct 38.3 % (35.4-49) 05/27/19 08:00 MCV 91.3 fl (80-96) 05/27/19 08:00 MCH 30.7 pg (25.7-33.7) 05/27/19 08:00 MCHC 33.6 g/dl (32.0-35.9) 05/27/19 08:00 RDW 13.6 % (11.9-15.9) 05/27/19 08:00 Plt Count 370 K/MM3 (134-434) D 05/27/19 08:00 MPV 8.5 fl (7.5-11.1) 05/27/19 08:00 Sodium 140 mmol/L (136-145) 05/27/19 08:00 Potassium 4.5 mmol/L (3.5-5.1) 05/27/19 08:00 Chloride 106 mmol/L (98-107) 05/27/19 08:00 Carbon Dioxide 29 mmol/L (21-32) 05/27/19 08:00 Anion Gap 5 MMOL/L (8-16) L 05/27/19 08:00 BUN 16.0 mg/dL (7-18) 05/27/19 08:00 Creatinine 1.1 mg/dL (0.55-1.3) 05/27/19 08:00 Est GFR (CKD-EPI)AfAm 85.91 05/27/19 08:00 Est GFR (CKD-EPI)NonAf 74.12 05/27/19 08:00 Random Glucose 104 mg/dL (74-106) 05/27/19 08:00 Calcium 9.3 mg/dL (8.5-10.1) 05/27/19 08:00 Total Bilirubin 0.4 mg/dL (0.2-1) 05/27/19 08:00 AST 22 U/L (15-37) 05/27/19 08:00 ALT 19 U/L (13-61) 05/27/19 08:00 Alkaline Phosphatase 74 U/L (45-117) 05/27/19 08:00 Total Protein 6.6 g/dl (6.4-8.2) 05/27/19 08:00 Albumin 3.1 g/dl (3.4-5.0) L 05/27/19 08:00 RPR Titer Nonreactive (NONREACTIVE) 05/27/19 08:00 Plan: Clonidine Naprosyn Serum uric acid Start colchicine induction in a.m.
[2019-05-28] MEDS: NAPROXEN 500 MG TABLET (FP) PO PRN (22:28)
[2019-05-28] MEDS: THIAMINE HCL 100 MG TABLET (FP) PO SCH (22:28)
[2019-05-29] MEDS ORDERED: chlordiazePOXIDE HCL 10 MG CAPSULE PO PRN
[2019-05-29] MEDS: chlordiazePOXIDE HCL 10 MG CAPSULE PO SCH ×3 (06:09→21:34)
[2019-05-29] MEDS ORDERED: COLCHICINE 0.6 MG CAP PO ONE ×2 (10:00→11:00)
[2019-05-29] MEDS: INDOMETHACIN 25 MG CAPSULE PO SCH (10:44)
[2019-05-29] MEDS: PRENATAL VITAMINS W/ FOLIC ACID TABLET (FP) PO SCH (10:44)
[2019-05-29] MEDS: amLODIPine BESYLATE 5 MG TABLET (FP) PO SCH (10:44)
[2019-05-29] MEDS: PANTOPRAZOLE 40 MG TABLET (FP) PO SCH (10:44)
[2019-05-29] MEDS: NICOTINE 14 MG/24 HOURS TOPICAL PATCH TD SCH (10:45)
[2019-05-29] MEDS: BUDESONIDE/FORMETEROL FUMARATE 80/4.5 mcg INHALER IH SCH ×2 (10:45→21:34)
[2019-05-29] MEDS: COLCHICINE 0.6 MG CAP PO SCH ×2 (13:50→14:50)
--- NOTE | 2019-05-29 15:32 | PN ---
S CIWA - CIWA Score Nausea/Vomitin-No Nausea/No Vomiting Muscle Tremors: None Anxiety: 1-Mildly Anxious Agitation: 1-Slight > Activity Paroxysmal Sweats: No Perspiration Orientation: 0-Oriented Tacttile Disturbances: 0-None Auditory Disturbances: 0-None Visual Disturbances: 0-None Headache: 0-None Present CIWA-Ar Total Score: 2 BHS Progress Note (SOAP) Subjective: Body Aches (improving). Patient reports history of Gout. Objective: PATIENT A & O X 3, OBSERVED AMBULATING ON DETOX UNIT UNASSISTED. IN NO ACUTE DISTRESS. 05/29/19 15:30 Vital Signs Temperature 96.1 F L 05/29/19 14:01 Pulse Rate 88 05/29/19 14:01 Respiratory Rate 18 05/29/19 14:01 Blood Pressure 131/75 05/29/19 14:01 O2 Sat by Pulse Oximetry (%) Laboratory Tests 05/27/19 05/27/19 05/27/19 08:00 08:00 08:00 WBC 6.9 RBC 4.20 Hgb 12.9 Hct 38.3 MCV 91.3 MCH 30.7 MCHC 33.6 RDW 13.6 Plt Count 370 D MPV 8.5 Sodium 140 Potassium 4.5 Chloride 106 Carbon Dioxide 29 Anion Gap 5 L BUN 16.0 Creatinine 1.1 Est GFR (CKD-EPI)AfAm 85.91 Est GFR (CKD-EPI)NonAf 74.12 Random Glucose 104 Uric Acid Calcium 9.3 Total Bilirubin 0.4 AST 22 ALT 19 Alkaline Phosphatase 74 Total Protein 6.6 Albumin 3.1 L RPR Titer Nonreactive 05/29/19 07:40 WBC RBC Hgb Hct MCV MCH MCHC RDW Plt Count MPV Sodium Potassium Chloride Carbon Dioxide Anion Gap BUN Creatinine Est GFR (CKD-EPI)AfAm Est GFR (CKD-EPI)NonAf Random Glucose Uric Acid 5.8 Calcium Total Bilirubin AST ALT Alkaline Phosphatase Total Protein Albumin RPR Titer LABS NOTED. RESULT OF URIC ACID LEVEL DRAWN EARLIER TODAY NOTED (5.8 - WITHIN NORMAL RANGE). Assessment: 05/29/19 15:31 WITHDRAWAL SYMPTOMS. Plan: CONTINUE DETOX. PATIENT SCHEDULED FOR D/C FROM DETOX UNIT TOMORROW.
[2019-05-29] MEDS: NAPROXEN 500 MG TABLET (FP) PO PRN (19:27)
[2019-05-29] MEDS: MELATONIN 5 MG TABLETS PO PRN (21:35)
[2019-05-29] MEDS: THIAMINE HCL 100 MG TABLET (FP) PO SCH (22:07)
[2019-05-30] MEDS ORDERED: chlordiazePOXIDE HCL 10 MG CAPSULE PO ONE (05:00)
[2019-05-30 09:29] VITALS: BP 137/95; PULSE 92; TEMP 97
[2019-05-30] MEDS: amLODIPine BESYLATE 5 MG TABLET (FP) PO SCH (10:15)
[2019-05-30] MEDS: PANTOPRAZOLE 40 MG TABLET (FP) PO SCH (10:15)
[2019-05-30] MEDS: INDOMETHACIN 25 MG CAPSULE PO SCH (10:15)
[2019-05-30] MEDS: PRENATAL VITAMINS W/ FOLIC ACID TABLET (FP) PO SCH (10:15)
[2019-05-30] MEDS: NICOTINE 14 MG/24 HOURS TOPICAL PATCH TD SCH (10:16)
[2019-05-30] MEDS: BUDESONIDE/FORMETEROL FUMARATE 80/4.5 mcg INHALER IH SCH (10:17)
--- NOTE | 2019-05-30 11:55 | DS ---
[facility] Detox Discharge Summary Admission Date: 05/26/19 Discharge Date: 05/30/19 - History Present History: Alcohol Dependence, Cocaine Dependence Additional Comments: Patient completed detox successfully and accepted admission to [facility] inpatient Rehab. Patient is stable upon discharge. Noted with mild hypoalbuminemia: encouraged diet. Pertinent Past History: Cocaine/crack dependence Alcohol dependence Asthma GERD HTN HLD History of positive PPD Nicotine dependence Obesity - Physical Exam Results Vital Signs: Vital Signs Temperature 97.0 F L 05/30/19 09:28 Pulse Rate 92 H 05/30/19 09:28 Respiratory Rate 18 05/30/19 09:28 Blood Pressure 137/95 05/30/19 09:28 O2 Sat by Pulse Oximetry (%) Pertinent Admission Physical Exam Findings: Withdrawal sxs Laboratory Tests 05/27/19 05/27/19 05/27/19 08:00 08:00 08:00 WBC 6.9 RBC 4.20 Hgb 12.9 Hct 38.3 MCV 91.3 MCH 30.7 MCHC 33.6 RDW 13.6 Plt Count 370 D MPV 8.5 Sodium 140 Potassium 4.5 Chloride 106 Carbon Dioxide 29 Anion Gap 5 L BUN 16.0 Creatinine 1.1 Est GFR (CKD-EPI)AfAm 85.91 Est GFR (CKD-EPI)NonAf 74.12 Random Glucose 104 Uric Acid Calcium 9.3 Total Bilirubin 0.4 AST 22 ALT 19 Alkaline Phosphatase 74 Total Protein 6.6 Albumin 3.1 L RPR Titer Nonreactive 05/29/19 07:40 WBC RBC Hgb Hct MCV MCH MCHC RDW Plt Count MPV Sodium Potassium Chloride Carbon Dioxide Anion Gap BUN Creatinine Est GFR (CKD-EPI)AfAm Est GFR (CKD-EPI)NonAf Random Glucose Uric Acid 5.8 Calcium Total Bilirubin AST ALT Alkaline Phosphatase Total Protein Albumin RPR Titer Labs reviewed: albumin 3.1 - Treatment Hospital Course: Detox Protocol Followed, Detoxed Safely, Responded well, Discharged Condition Good, Rehab Referral Accepted - Medication Discharge Medications: Ambulatory Orders Albuterol Sulfate Inhaler - [Ventolin HFA Inhaler -] 2 puff IH Q4H PRN #1 inhaler 11/11/17 Budesonide/Formeterol Fumarate [SYMBICORT 80/4.5mcg -] 1 puff IH BID #1 inhaler 11/11/17 Naproxen [Naprosyn -] 500 mg PO BID PRN #30 tablet 11/11/17 Pantoprazole Sodium [Protonix -] 40 mg PO DAILY #30 tablet.ec 11/11/17 Amlodipine Besylate [Norvasc -] 5 mg PO DAILY 05/26/19 Indomethacin 25 mg PO DAILY 05/26/19 - Diagnosis (1) History of positive PPD, treatment status unknown Current Visit: Yes Status: Chronic (2) Alcohol dependence with uncomplicated withdrawal Current Visit: Yes Status: Acute (3) Asthma Current Visit: Yes Status: Chronic Qualifiers: Asthma severity: mild Asthma persistence: intermittent Asthma complication type: uncomplicated Qualified Code(s): J45.20 - Mild intermittent asthma, uncomplicated (4) Cocaine dependence Current Visit: Yes Status: Chronic (5) HLD (hyperlipidemia) Current Visit: Yes Status: Chronic (6) HTN (hypertension) Current Visit: Yes Status: Chronic Qualifiers: Hypertension type: essential hypertension Qualified Code(s): I10 - Essential (primary) hypertension (7) Nicotine dependence Current Visit: Yes Status: Chronic Qualifiers: Nicotine product type: cigarettes Substance use status: uncomplicated Qualified Code(s): F17.210 - Nicotine dependence, cigarettes, uncomplicated (8) GERD (gastroesophageal reflux disease) Current Visit: No Status: Chronic Qualifiers: Esophagitis presence: esophagitis presence not specified Qualified Code(s) : K21.9 - Gastro-esophageal reflux disease without esophagitis (9) Hypoalbuminemia Current Visit: Yes Status: Acute (10) Obesity (BMI 30.0-34.9) Current Visit: Yes Status: Chronic - AMA Did Patient Leave Against Medical Advice: No (Patient accepted admission to [facility])
== END 2019-05-30 11:13 | disposition other institution (70) | DRG 774 ==
LOC: YASAS 13:59 → Y6N 17:08
PROVIDERS: ADMIT Allergy & Immunology; ATTEND Allergy & Immunology
PROC: HZ2ZZZZ Detoxification Services for Substance Abuse Treatment (ICD-10-PCS; principal; 2019-05-26)
DX: F10.230 Alcohol dependence with withdrawal, uncomplicated (principal); F14.20 Cocaine dependence, uncomplicated; F17.210 Nicotine dependence, cigarettes, uncomplicated; F19.24 Other psychoactive substance dependence with psychoactive substance-induced mood disorder; I10 Essential (primary) hypertension; E78.5 Hyperlipidemia, unspecified; E88.09 Other disorders of plasma-protein metabolism, not elsewhere classified; K21.9 Gastro-esophageal reflux disease without esophagitis; K57.90 Diverticulosis of intestine, part unspecified, without perforation or abscess without bleeding; M10.9 Gout, unspecified; M19.90 Unspecified osteoarthritis, unspecified site; H53.032 Strabismic amblyopia, left eye; R23.8 Other skin changes; L85.3 Xerosis cutis; J45.998 Other asthma; J44.9 Chronic obstructive pulmonary disease, unspecified; M25.532 Pain in left wrist; Z99.89 Dependence on other enabling machines and devices; Z59.0 Homelessness
CPT/HCPCS: 36415; 71046-TC-FY; 80053; 84550; 85027; 86593; 93005; 93010; J0735

== ENCOUNTER 2019-05-30 10:57 | Inpatient (IN) | payer OTHER ==
[2019-05-30] MEDS ORDERED: MENTHOL/PHENOL 1 EACH UD MM PRN (11:32)
[2019-05-30] MEDS ORDERED: MAG HYDROX/AL HYDROX/SIMETH 30 ML UNIT-DOSE CUP PO PRN (11:32)
[2019-05-30] MEDS ORDERED: hydrOXYzine PAMOATE 25 MG CAPSULE (FP) PO PRN (11:32)
[2019-05-30] MEDS ORDERED: MAGNESIUM HYDROX 2400MG/30ML ORAL SUSPENSION 30 ML CUP PO PRN (11:32)
[2019-05-30] MEDS ORDERED: MAGNESIUM CITRATE 300 ML BOTTLE PO PRN (11:32)
[2019-05-30] MEDS ORDERED: P-EPHED 60MG/TRIPROLIDI 2.5MG TABLET PO PRN (11:32)
[2019-05-30] MEDS ORDERED: guaiFENesin 200 MG/10 ML 10 ML UNIT-DOSE CUPS PO PRN (11:32)
[2019-05-30] MEDS ORDERED: LOPERAMIDE HCL 2 MG CAPSULE PO PRN (11:32)
--- NOTE | 2019-05-30 11:32 | HP ---
[facility] Rehab Assess/Revision - Admission History Admitted to Rehab from: [facility] Date of Admission to Rehab: 05/30/2019 - Findings Detox History & Physical reviewed: Yes Concur with findings: Yes Inpatient Rehab Admission - Rehab Decision to Admit Inpatient rehab admission?: Yes - Initial Determination Are CD services needed?: No Free of communicable disease: Yes Not in need of hospitalization: Yes - Rehab Admission Criteria Previous failed treatment: Yes Poor recovery environment: Yes Comorbidities: Yes Lacks judgement: Yes Patient is meeting Inpatient Rehab admission criteria:: Yes
[2019-05-30] MEDS ORDERED: ONDANSETRON *ODT* 4 MG TABLET SL PRN (11:40)
[2019-05-30] MEDS: IBUPROFEN 400 MG TABLET (FP) PO PRN (14:55)
[2019-05-30] MEDS: ALBUTEROL SO4 HFA INHALER IH PRN ×2 (14:56→19:55)
[2019-05-30] MEDS: THIAMINE HCL 100 MG TABLET (FP) PO SCH (21:09)
[2019-05-30] MEDS: BUDESONIDE/FORMETEROL FUMARATE 80/4.5 mcg INHALER IH SCH (21:09)
[2019-05-30] MEDS: NAPROXEN 500 MG TABLET PO PRN (21:10)
[2019-05-30] MEDS: MELATONIN 5 MG TABLETS PO PRN (21:11)
[2019-05-31] MEDS: amLODIPine BESYLATE 5 MG TABLET (FP) PO SCH (10:58)
[2019-05-31] MEDS: BUDESONIDE/FORMETEROL FUMARATE 80/4.5 mcg INHALER IH SCH ×2 (10:58→21:52)
[2019-05-31] MEDS: PRENATAL VITAMINS W/ FOLIC ACID TABLET (FP) PO SCH (10:58)
[2019-05-31] MEDS: PANTOPRAZOLE 40 MG TABLET PO SCH (10:58)
[2019-05-31] MEDS: NICOTINE 14 MG/24 HOURS TOPICAL PATCH TD SCH (10:58)
[2019-05-31] MEDS ORDERED: FLU VACCINE QUAD 60 MCG/0.5 ML (MDV 19-20) IM ONE (12:00)
[2019-05-31] MEDS: IBUPROFEN 400 MG TABLET (FP) PO PRN (17:44)
[2019-05-31] MEDS: ALBUTEROL SO4 HFA INHALER IH PRN ×2 (17:45→21:52)
[2019-05-31] MEDS: THIAMINE HCL 100 MG TABLET (FP) PO SCH (21:53)
[2019-05-31] MEDS: MELATONIN 5 MG TABLETS PO PRN (21:55)
[2019-06-01] MEDS: NAPROXEN 500 MG TABLET PO PRN ×2 (06:24→21:59)
[2019-06-01] MEDS: PRENATAL VITAMINS W/ FOLIC ACID TABLET (FP) PO SCH (11:44)
[2019-06-01] MEDS: PANTOPRAZOLE 40 MG TABLET PO SCH (11:44)
[2019-06-01] MEDS: amLODIPine BESYLATE 5 MG TABLET (FP) PO SCH (11:44)
[2019-06-01] MEDS: BUDESONIDE/FORMETEROL FUMARATE 80/4.5 mcg INHALER IH SCH ×2 (11:45→22:00)
[2019-06-01] MEDS: NICOTINE 14 MG/24 HOURS TOPICAL PATCH TD SCH (11:45)
[2019-06-01] MEDS: ALBUTEROL SO4 HFA INHALER IH PRN (11:46)
[2019-06-01] MEDS: IBUPROFEN 400 MG TABLET (FP) PO PRN (11:49)
[2019-06-01] MEDS: THIAMINE HCL 100 MG TABLET (FP) PO SCH (21:59)
[2019-06-02] MEDS: NAPROXEN 500 MG TABLET PO PRN (06:44)
[2019-06-02] MEDS: PANTOPRAZOLE 40 MG TABLET PO SCH (11:07)
[2019-06-02] MEDS: BUDESONIDE/FORMETEROL FUMARATE 80/4.5 mcg INHALER IH SCH ×2 (11:07→21:59)
[2019-06-02] MEDS: amLODIPine BESYLATE 5 MG TABLET (FP) PO SCH (11:07)
[2019-06-02] MEDS: PRENATAL VITAMINS W/ FOLIC ACID TABLET (FP) PO SCH (11:07)
[2019-06-02] MEDS: ALBUTEROL SO4 HFA INHALER IH PRN (11:07)
[2019-06-02] MEDS: NICOTINE 14 MG/24 HOURS TOPICAL PATCH TD SCH (11:08)
--- NOTE | 2019-06-02 15:58 | PN ---
S Progress Note Note: Seen today for c/o "something in my mouth". Denies difficulty swallowing. No h/ o HIV. Pt uses steroid inhaler PE- whitish spots on gums and back of mouth Vital Signs - 24 hr 06/02/19 06/02/19 03:30 07:15 Temperature 97.2 F L Pulse Rate 79 Respiratory 18 18 Rate Blood Pressure 143/97 a/p: PE consistent with thrush- probably due to steroid inhaler and has pre diabetes HIV test mirtha juarez
[2019-06-02] MEDS: CLOTRIMAZOLE 10 MG TROCHE (FP) PO SCH ×2 (18:49→21:57)
[2019-06-02] MEDS: THIAMINE HCL 100 MG TABLET (FP) PO SCH (21:56)
[2019-06-02] MEDS: IBUPROFEN 400 MG TABLET (FP) PO PRN (21:57)
[2019-06-03] MEDS: CLOTRIMAZOLE 10 MG TROCHE (FP) PO SCH ×5 (06:13→21:42)
[2019-06-03] MEDS: ALBUTEROL SO4 HFA INHALER IH PRN (06:15)
[2019-06-03] MEDS: NICOTINE 14 MG/24 HOURS TOPICAL PATCH TD SCH (10:18)
[2019-06-03] MEDS: PRENATAL VITAMINS W/ FOLIC ACID TABLET (FP) PO SCH (10:18)
[2019-06-03] MEDS: amLODIPine BESYLATE 5 MG TABLET (FP) PO SCH (10:18)
[2019-06-03] MEDS: PANTOPRAZOLE 40 MG TABLET PO SCH (10:18)
[2019-06-03] MEDS: BUDESONIDE/FORMETEROL FUMARATE 80/4.5 mcg INHALER IH SCH ×2 (10:19→21:41)
[2019-06-03] MEDS: THIAMINE HCL 100 MG TABLET (FP) PO SCH (21:41)
[2019-06-03] MEDS: IBUPROFEN 400 MG TABLET (FP) PO PRN (21:43)
[2019-06-04] MEDS: NAPROXEN 500 MG TABLET PO PRN ×2 (07:04→21:50)
[2019-06-04] MEDS: CLOTRIMAZOLE 10 MG TROCHE (FP) PO SCH ×5 (07:04→21:49)
[2019-06-04] MEDS: ALBUTEROL SO4 HFA INHALER IH PRN ×2 (09:03→17:46)
[2019-06-04] MEDS: BUDESONIDE/FORMETEROL FUMARATE 80/4.5 mcg INHALER IH SCH ×2 (10:53→21:49)
[2019-06-04] MEDS: amLODIPine BESYLATE 5 MG TABLET (FP) PO SCH (10:53)
[2019-06-04] MEDS: PANTOPRAZOLE 40 MG TABLET PO SCH (10:53)
[2019-06-04] MEDS: PRENATAL VITAMINS W/ FOLIC ACID TABLET (FP) PO SCH (10:53)
[2019-06-04] MEDS: NICOTINE 14 MG/24 HOURS TOPICAL PATCH TD SCH (10:54)
[2019-06-04] MEDS: THIAMINE HCL 100 MG TABLET (FP) PO SCH (21:49)
[2019-06-05] MEDS: CLOTRIMAZOLE 10 MG TROCHE (FP) PO SCH ×5 (06:51→21:46)
[2019-06-05] MEDS: IBUPROFEN 400 MG TABLET (FP) PO PRN (06:52)
[2019-06-05] MEDS: ALBUTEROL SO4 HFA INHALER IH PRN ×2 (06:53→19:22)
[2019-06-05] MEDS: NICOTINE 14 MG/24 HOURS TOPICAL PATCH TD SCH (10:20)
[2019-06-05] MEDS: BUDESONIDE/FORMETEROL FUMARATE 80/4.5 mcg INHALER IH SCH ×2 (10:20→21:47)
[2019-06-05] MEDS: PANTOPRAZOLE 40 MG TABLET PO SCH (10:20)
[2019-06-05] MEDS: amLODIPine BESYLATE 5 MG TABLET (FP) PO SCH (10:20)
[2019-06-05] MEDS: PRENATAL VITAMINS W/ FOLIC ACID TABLET (FP) PO SCH (10:20)
[2019-06-05] MEDS: THIAMINE HCL 100 MG TABLET (FP) PO SCH (21:46)
[2019-06-05] MEDS: NAPROXEN 500 MG TABLET PO PRN (21:48)
[2019-06-06] MEDS: CLOTRIMAZOLE 10 MG TROCHE (FP) PO SCH ×5 (06:37→21:40)
[2019-06-06] MEDS: IBUPROFEN 400 MG TABLET (FP) PO PRN (06:37)
[2019-06-06] MEDS: ALBUTEROL SO4 HFA INHALER IH PRN ×2 (06:41→17:44)
[2019-06-06] MEDS: NICOTINE 14 MG/24 HOURS TOPICAL PATCH TD SCH (10:36)
[2019-06-06] MEDS: amLODIPine BESYLATE 5 MG TABLET (FP) PO SCH (10:37)
[2019-06-06] MEDS: BUDESONIDE/FORMETEROL FUMARATE 80/4.5 mcg INHALER IH SCH ×2 (10:37→21:39)
[2019-06-06] MEDS: PRENATAL VITAMINS W/ FOLIC ACID TABLET (FP) PO SCH (10:37)
[2019-06-06] MEDS: PANTOPRAZOLE 40 MG TABLET PO SCH (10:37)
[2019-06-06] MEDS: NAPROXEN 500 MG TABLET PO PRN ×2 (10:40→21:41)
[2019-06-06] MEDS: THIAMINE HCL 100 MG TABLET (FP) PO SCH (21:39)
[2019-06-07] MEDS: NAPROXEN 500 MG TABLET PO PRN ×2 (06:26→22:00)
[2019-06-07] MEDS: CLOTRIMAZOLE 10 MG TROCHE (FP) PO SCH ×5 (06:26→22:00)
[2019-06-07] MEDS: ALBUTEROL SO4 HFA INHALER IH PRN ×2 (11:12→21:59)
[2019-06-07] MEDS: BUDESONIDE/FORMETEROL FUMARATE 80/4.5 mcg INHALER IH SCH ×2 (11:12→21:58)
[2019-06-07] MEDS: PANTOPRAZOLE 40 MG TABLET PO SCH (11:13)
[2019-06-07] MEDS: amLODIPine BESYLATE 5 MG TABLET (FP) PO SCH (11:13)
[2019-06-07] MEDS: NICOTINE 14 MG/24 HOURS TOPICAL PATCH TD SCH (11:13)
[2019-06-07] MEDS: PRENATAL VITAMINS W/ FOLIC ACID TABLET (FP) PO SCH (11:13)
[2019-06-07] MEDS: THIAMINE HCL 100 MG TABLET (FP) PO SCH (21:58)
[2019-06-07] MEDS: MELATONIN 5 MG TABLETS PO PRN (21:59)
[2019-06-08] MEDS: CLOTRIMAZOLE 10 MG TROCHE (FP) PO SCH ×5 (06:19→21:07)
[2019-06-08] MEDS: IBUPROFEN 400 MG TABLET (FP) PO PRN (06:20)
[2019-06-08] MEDS: amLODIPine BESYLATE 5 MG TABLET (FP) PO SCH (11:02)
[2019-06-08] MEDS: PRENATAL VITAMINS W/ FOLIC ACID TABLET (FP) PO SCH (11:02)
[2019-06-08] MEDS: PANTOPRAZOLE 40 MG TABLET PO SCH (11:02)
[2019-06-08] MEDS: BUDESONIDE/FORMETEROL FUMARATE 80/4.5 mcg INHALER IH SCH ×2 (11:02→21:06)
[2019-06-08] MEDS: NICOTINE 14 MG/24 HOURS TOPICAL PATCH TD SCH (11:03)
[2019-06-08] MEDS: NAPROXEN 500 MG TABLET PO PRN ×2 (11:04→21:07)
[2019-06-08] MEDS: ALBUTEROL SO4 HFA INHALER IH PRN (17:41)
[2019-06-08] MEDS: THIAMINE HCL 100 MG TABLET (FP) PO SCH (21:07)
[2019-06-09] MEDS: IBUPROFEN 400 MG TABLET (FP) PO PRN (06:04)
[2019-06-09] MEDS: CLOTRIMAZOLE 10 MG TROCHE (FP) PO SCH ×5 (06:04→21:57)
[2019-06-09] MEDS: ALBUTEROL SO4 HFA INHALER IH PRN ×2 (06:05→17:34)
[2019-06-09] MEDS: amLODIPine BESYLATE 5 MG TABLET (FP) PO SCH (11:18)
[2019-06-09] MEDS: PRENATAL VITAMINS W/ FOLIC ACID TABLET (FP) PO SCH (11:18)
[2019-06-09] MEDS: BUDESONIDE/FORMETEROL FUMARATE 80/4.5 mcg INHALER IH SCH ×2 (11:18→21:57)
[2019-06-09] MEDS: PANTOPRAZOLE 40 MG TABLET PO SCH (11:18)
[2019-06-09] MEDS: NICOTINE 14 MG/24 HOURS TOPICAL PATCH TD SCH (11:19)
[2019-06-09] MEDS: THIAMINE HCL 100 MG TABLET (FP) PO SCH (21:57)
[2019-06-09] MEDS: NAPROXEN 500 MG TABLET PO PRN (21:58)
[2019-06-10] MEDS: ACETAMINOPHEN 325 MG TABLET (FP) PO PRN (06:14)
[2019-06-10] MEDS: CLOTRIMAZOLE 10 MG TROCHE (FP) PO SCH ×5 (06:14→22:06)
[2019-06-10] MEDS: NICOTINE 14 MG/24 HOURS TOPICAL PATCH TD SCH (10:51)
[2019-06-10] MEDS: PANTOPRAZOLE 40 MG TABLET PO SCH (10:51)
[2019-06-10] MEDS: PRENATAL VITAMINS W/ FOLIC ACID TABLET (FP) PO SCH (10:51)
[2019-06-10] MEDS: amLODIPine BESYLATE 5 MG TABLET (FP) PO SCH (10:51)
[2019-06-10] MEDS: BUDESONIDE/FORMETEROL FUMARATE 80/4.5 mcg INHALER IH SCH ×2 (10:51→22:05)
--- NOTE | 2019-06-10 14:41 | DS ---
[facility] Rehab Discharge Summary - [facility] Rehab Discharge Summary Admission Date: 05/30/19 Discharge Date: 06/10/19 - History Present History: Alcohol dependence Additional Comments: Pt is a 58 y/o male with LOU admitted to rehab. Pt reports he has no PCP at this time. Pt has been referred to [facility] medical clinic for primary care follow up. Pt met with counselor and arranged for CD aftercare referral to [facility] [address], [place]. Pertinent Past History: Asthma COPD GERD GOUT Diverticulosis HTN HLD Osteoarthritis Obesity Dry skin Dermatitis - Discharge Physical Exam Vital Signs: Vital Signs Temperature 97.2 F L 06/10/19 07:30 Pulse Rate 86 06/10/19 09:15 Respiratory Rate 18 06/10/19 09:15 Blood Pressure 121/76 06/10/19 09:15 O2 Sat by Pulse Oximetry (%) Pertinent Admission Physical Exam Findings: Laboratory Tests 06/03/19 07:00 HIV 1&2 Ag/Ab, 4th Gen Non reactive Unremarkable from detox - Treatment Discharge Condition: Discharge condition good Hospital Course: rehabilitated safely and responded well cd aftercare referral accepted - Medication Discharge Medications: Ambulatory Orders Amlodipine Besylate [Norvasc -] 5 mg PO DAILY 05/26/19 Albuterol Sulfate Inhaler - [Ventolin HFA Inhaler -] 2 puff IH Q4H PRN #1 inhaler 06/11/19 Budesonide/Formeterol Fumarate [SYMBICORT 80/4.5mcg -] 1 puff IH BID #1 inhaler 06/11/19 Naproxen [Naprosyn -] 500 mg PO BID PRN #30 tablet 06/11/19 Pantoprazole Sodium [Protonix -] 40 mg PO DAILY #30 tablet.ec 06/11/19 - Medication-Assisted Treatment (MAT) Medication-Assisted Treatment (MAT): No - Discharge Instructions Diet, activity, other medical instructions: Diet:JAVON Activity:oob ad germán Other medical instructions:follow up with CD aftercare recommendations as scheduled. Follow up with primary care provider for medical management within 1 week after discharge. - Diagnosis (1) Alcohol dependence Status: Chronic Qualifiers: Substance use status: uncomplicated Qualified Code(s): F10.20 - Alcohol dependence, uncomplicated (2) Dry skin dermatitis Status: Chronic (3) Asthma Status: Chronic Qualifiers: Asthma severity: mild Asthma persistence: intermittent Asthma complication type: uncomplicated Qualified Code(s): J45.20 - Mild intermittent asthma, uncomplicated (4) COPD (chronic obstructive pulmonary disease) Status: Chronic Qualifiers: Emphysema type: unspecified (5) Cocaine dependence Status: Chronic Qualifiers: Substance use status: uncomplicated Qualified Code(s): F14.20 - Cocaine dependence, uncomplicated (6) Diverticulosis Status: Chronic (7) GERD (gastroesophageal reflux disease) Status: Chronic Qualifiers: Esophagitis presence: esophagitis presence not specified Qualified Code(s) : K21.9 - Gastro-esophageal reflux disease without esophagitis (8) Gout Status: Chronic Qualifiers: Gout site: unspecified site (9) HLD (hyperlipidemia) Status: Chronic Qualifiers: Hyperlipidemia type: unspecified Qualified Code(s): E78.5 - Hyperlipidemia , unspecified (10) HTN (hypertension) Status: Chronic Qualifiers: Hypertension type: essential hypertension Qualified Code(s): I10 - Essential (primary) hypertension (11) Obesity (BMI 30.0-34.9) Status: Chronic (12) Osteoarthritis Status: Chronic - Follow-up Referral Minutes to complete discharge: 20 - AMA Did Patient Leave Against Medical Advice: No Additional Comments: Pt reports he has own BP meds at home and does not need courtesy Rx for Amlodipine. However Rx electronically sent to pt's pharmacy on other meds- protonix 40 mg po daily #30 , Naprosyn 500 mg po BID #30, albuterol inhaler 2 puffs q4h prn for sob #1 and Symbicort inhaler 80/4.5 mcg 1 puff BID #1.
[2019-06-10] MEDS: ALBUTEROL SO4 HFA INHALER IH PRN ×2 (18:12→22:04)
[2019-06-10] MEDS: THIAMINE HCL 100 MG TABLET (FP) PO SCH (22:04)
[2019-06-10] MEDS: NAPROXEN 500 MG TABLET PO PRN (22:06)
[2019-06-11] MEDS: CLOTRIMAZOLE 10 MG TROCHE (FP) PO SCH (06:19)
[2019-06-11] MEDS: ACETAMINOPHEN 325 MG TABLET (FP) PO PRN (06:22)
[2019-06-11 07:15] VITALS: BP 130/93; PULSE 81; TEMP 97.3
--- NOTE | 2019-06-11 09:56 | PN ---
S Progress Note Note: Pt was discharged today as scheduled in stable condition. Vital Signs - 24 hr 06/11/19 06/11/19 03:30 07:14 Temperature 97.3 F L Pulse Rate 81 Respiratory 18 18 Rate Blood Pressure 130/93 Alert o x 3 nad oob ambulating with steady gait cardiac:s1 s2,rrr lungs:cta,carla. A/P Medically stable D/C pt today.
[2019-06-11] MEDS: amLODIPine BESYLATE 5 MG TABLET (FP) PO SCH (10:08)
[2019-06-11] MEDS: PANTOPRAZOLE 40 MG TABLET PO SCH (10:08)
[2019-06-11] MEDS: BUDESONIDE/FORMETEROL FUMARATE 80/4.5 mcg INHALER IH SCH (10:09)
[2019-06-11] MEDS: NICOTINE 14 MG/24 HOURS TOPICAL PATCH TD SCH (10:09)
[2019-06-11] MEDS: PRENATAL VITAMINS W/ FOLIC ACID TABLET (FP) PO SCH (10:09)
== END 2019-06-11 10:45 | disposition home or self-care (01) | DRG 772 ==
LOC: YASAS 10:57 → Y5N 10:58
PROVIDERS: ADMIT Neuromusculoskeletal Medicine & OMM; ATTEND Neuromusculoskeletal Medicine & OMM
PROC: HZ42ZZZ Group Counseling for Substance Abuse Treatment, Cognitive-Behavioral (ICD-10-PCS; principal; 2019-05-30)
DX: F10.20 Alcohol dependence, uncomplicated (principal); F14.20 Cocaine dependence, uncomplicated; I10 Essential (primary) hypertension; J45.20 Mild intermittent asthma, uncomplicated; J44.9 Chronic obstructive pulmonary disease, unspecified; E78.5 Hyperlipidemia, unspecified; K21.9 Gastro-esophageal reflux disease without esophagitis; K57.30 Diverticulosis of large intestine without perforation or abscess without bleeding; L85.3 Xerosis cutis; B37.0 Candidal stomatitis; M10.9 Gout, unspecified; M19.90 Unspecified osteoarthritis, unspecified site; E66.9 Obesity, unspecified; Z68.30 Body mass index [BMI] 30.0-30.9, adult
CPT/HCPCS: 36415; 87389; G0008; Q2036